=== PATIENT | female | born 1945 | race Caucasian/White ===

== ENCOUNTER → 2017-05-06 | Outpatient (CLI) | payer MEDICARE, OTHER ==
[2017-05-06 17:17] LABS: RED BLOOD COUNT 4.55 M/UL (4.00-5.10)
== END ==
LOC: LAB 16:19
PROVIDERS: Physician Assistant
DX: R10.9 Unspecified abdominal pain (principal); E11.9 Type 2 diabetes mellitus without complications
CPT/HCPCS: 36415; 80053; 83036; 83690; 85025

== ENCOUNTER 2017-05-07 14:46 | Emergency (ER) | payer MEDICARE, OTHER ==
[2017-05-07 17:49] LABS: HEMOGLOBIN 13.1 gm/dl (12.3-15.3); RED BLOOD COUNT 4.55 M/UL (4.00-5.10); WHITE BLOOD COUNT 8.5 K/UL (4.5-11.0)
== END 2017-05-07 22:45 | disposition home or self-care (01) ==
LOC: ER1 14:46
PROVIDERS: Student in an Organized Health Care Education/Training Program
DX: R42 Dizziness and giddiness (principal); R10.9 Unspecified abdominal pain; N28.9 Disorder of kidney and ureter, unspecified; E78.5 Hyperlipidemia, unspecified; I10 Essential (primary) hypertension; Z98.51 Tubal ligation status; Z87.891 Personal history of nicotine dependence
CPT/HCPCS: 36415; 71010; 80053; 81001; 82550; 82553; 83690; 83874; 84484; 85025; 85611; 85732; 87086; 93005; 96360; 96361; 99284

== ENCOUNTER → 2021-10-04 | Outpatient (CLI) | payer MEDICARE, OTHER | LOC: EMI 08:51 | DX: F44.5 Conversion disorder with seizures or convulsions (principal); G30.0 Alzheimer's disease with early onset; R90.89 Other abnormal findings on diagnostic imaging of central nervous system | CPT/HCPCS: 70551 ==

== ENCOUNTER 2021-10-24 09:39 | Emergency (ER) | payer MEDICARE, OTHER ==
[2021-10-24 10:21] LABS: HEMOGLOBIN 13.6 gm/dl (12.3-15.3); RED BLOOD COUNT 4.86 M/UL (4.00-5.10); WHITE BLOOD COUNT 6.5 K/UL (4.5-11.0)
[2021-10-24 11:05] LABS: BUN/CREATININE RATIO 13 (0-10)
== END 2021-10-24 12:08 | disposition home or self-care (01) ==
LOC: ER1 09:39
PROVIDERS: Emergency Medicine
DX: S80.02XA Contusion of left knee, initial encounter (principal); S80.01XA Contusion of right knee, initial encounter; Z86.59 Personal history of other mental and behavioral disorders; I10 Essential (primary) hypertension; W01.10XA Fall on same level from slipping, tripping and stumbling with subsequent striking against unspecified object, initial encounter
CPT/HCPCS: 70450; 71045; 73564; 80053; 81001; 82550; 82553; 83874; 84484; 85025; 93005; 99284